=== PATIENT | male | born 1950 | race African-American/Black ===

== ENCOUNTER 2019-04-07 13:36 | Inpatient (IN) | payer MEDICAID ==
[~2019-04-07] VITALS: Ht 172.7 cm; Wt 64.0 kg
[~2019-04-07 13:36] MED LIST: ALBU6.7H11 INH; AMLO10TA80 PO; ASPI-986 PO; CLOP75TA4 PO; GABA-529 PO; HYDR25TA PO; LIP40 PO; P50 PO; TIOT18CA3 IH
[2019-04-07] MEDS ORDERED: METHYLPREDNISOLONE SOD SUCC 125 MG/2 ML VIAL IV STA (14:11)
[2019-04-07] MEDS ORDERED: IPRATROPIUM BROMIDE (0.02%) 0.5MG/2.5ML NEB HHN STA (14:11)
[2019-04-07] MEDS ORDERED: ALBUTEROL (0.083%) 2.5MG/3ML NEB HHN STA (14:11)
[2019-04-07 15:31] LABS: BASOPHILS % 0.6 % (0.0-2.0); EOSINOPHILS % 0.5 % (0.0-5.0); HEMATOCRIT. 38.2 % (42.0-52.0); HEMOGLOBIN. 12.6 g/dL (14.0-18.0); LYMPHOCYTES % 26.2 % (20.0-50.0); MEAN CORPUSCULAR HEMOGLOBIN 29.2 pg (28.0-32.0); MEAN CORPUSCULAR VOLUME 88.7 fL (80.0-94.0); MONOCYTES % 8.8 % (2.0-8.0); NEUTROPHILS % 63.9 % (40.0-76.0); PLATELET 234 x1000/uL (130-400); RED CELL DISTRIBUTION WIDTH 15.6 % (11.6-14.6)
[2019-04-07 15:37] LABS: CHLORIDE 105 mEq/L (98-107)
[2019-04-07 15:41] LABS: D-DIMER 0.24 mg/L FEU (<0.50); INR 1.1; PARTIAL THROMBOPLASTIN TIME 29.9 sec (23.4-31.0); PROTHROMBIN TIME 10.9 sec (9.6-11.0)
[2019-04-07] MEDS ORDERED: MORPHINE SULFATE 4 MG/ML CPJ (NOT FOR IM USE) IV ONE (17:45)
[2019-04-07] MEDS ORDERED: LORAZEPAM 2MG/ML CPJ IV PRN (19:15)
[2019-04-07] MEDS ORDERED: HYDROCODONE/ACETAMINOPHEN 5/325MG TABLET PO PRN (19:15)
[2019-04-07] MEDS ORDERED: MAGNESIUM/ALUMINUM HYDROXIDE/SIMETHICONE 30ML UDC PO PRN (19:15)
[2019-04-07] MEDS ORDERED: ACETAMINOPHEN 325MG TABLET PO PRN (19:15)
[2019-04-07] MEDS ORDERED: CLONIDINE 0.1MG TABLET PO PRN (19:15)
[2019-04-07] MEDS ORDERED: ONDANSETRON HCL 4MG/2ML INJ IV PRN (19:15)
[2019-04-07] MEDS: IPRATROPIUM/ALBUTEROL 0.5-3(2.5)MG/3ML NEB NEB SCH (22:05)
[2019-04-08] MEDS: MORPHINE SULFATE 2 MG/ML CPJ (NOT FOR IM USE) IV PRN ×4 (00:06→16:52)
[2019-04-08 00:09] LABS: CREATINE KINASE 46 IU/L (39-308)
[2019-04-08 00:10] LABS: CREATINE KINASE MB FRACTION < 1.0 ng/mL (0.5-3.6)
[2019-04-08 00:20] VITALS: BP 96/43
[2019-04-08] MEDS: GUAIFENESIN 200MG/10ML SUGAR FREE UDC PO PRN ×3 (02:43→12:03)
[2019-04-08] MEDS ORDERED: ISOS60TA4 MT (03:02)
[2019-04-08] MEDS ORDERED: ASPI-1497 MT (03:06)
[2019-04-08] MEDS ORDERED: OMEP20TA2 MT (03:06)
[2019-04-08] MEDS ORDERED: APIX5TAB MT (03:06)
[2019-04-08] MEDS ORDERED: ATOR-2 MT (03:06)
[2019-04-08] MEDS ORDERED: METO-411 MT (03:09)
[2019-04-08] MEDS ORDERED: ACET-2708 MT (03:09)
[2019-04-08] MEDS ORDERED: HYDR25TA MT (03:09)
[2019-04-08] MEDS ORDERED: LISI-186 PO (03:09)
[2019-04-08] MEDS: IPRATROPIUM/ALBUTEROL 0.5-3(2.5)MG/3ML NEB NEB PRN ×2 (03:11→16:29)
[2019-04-08 04:00] VITALS: BP 100/59
[2019-04-08 07:33] LABS: BASOPHILS % 0.4 % (0.0-2.0); EOSINOPHILS % 0.3 % (0.0-5.0); HEMOGLOBIN. 11.7 g/dL (14.0-18.0); MEAN CORPUSCULAR HEMOGLOBIN 29.6 pg (28.0-32.0); MEAN CORPUSCULAR VOLUME 88.4 fL (80.0-94.0); MEAN PLATELET VOLUME 7.1 fl (7.4-10.4); MONOCYTES % 7.7 % (2.0-8.0); NEUTROPHILS % 77.6 % (40.0-76.0); PLATELET 212 x1000/uL (130-400); RED BLOOD CELL COUNT 3.96 mill/uL (4.7-6.1); RED CELL DISTRIBUTION WIDTH 15.9 % (11.6-14.6)
[2019-04-08 08:00] VITALS: BP 118/77
[2019-04-08 08:16] LABS: CHLORIDE 106 mEq/L (98-107)
[2019-04-08 08:25] LABS: CREATINE KINASE 55 IU/L (39-308); CREATINE KINASE MB FRACTION 1.1 ng/mL (0.5-3.6)
[2019-04-08] MEDS: IPRATROPIUM/ALBUTEROL 0.5-3(2.5)MG/3ML NEB NEB SCH ×3 (08:27→20:36)
[2019-04-08] MEDS: METHYLPREDNISOLONE SOD SUCC 40 MG/ML VIAL IV SCH ×2 (08:49→16:52)
[2019-04-08] MEDS: AMLODIPINE 10MG TABLET PO SCH (08:49)
[2019-04-08] MEDS: ASPIRIN 81MG EC TABLET PO SCH (09:02)
[2019-04-08 12:00] VITALS: BP 123/52
[2019-04-08 16:00] VITALS: BP 116/92
[2019-04-08] MEDS: APIXABAN 5 MG TABLET PO SCH (17:30)
[2019-04-08] MEDS: POTASSIUM CHLORIDE 20MEQ TABLET SR PO SCH (17:30)
[2019-04-08 20:00] VITALS: BP 109/46
[2019-04-09] VITALS: BP 116/56
[2019-04-09] MEDS: METHYLPREDNISOLONE SOD SUCC 40 MG/ML VIAL IV SCH ×3 (00:22→17:23)
[2019-04-09] MEDS: GUAIFENESIN 200MG/10ML SUGAR FREE UDC PO PRN ×2 (01:37→09:51)
[2019-04-09] MEDS: MORPHINE SULFATE 2 MG/ML CPJ (NOT FOR IM USE) IV PRN ×4 (01:38→21:18)
[2019-04-09] MEDS: IPRATROPIUM/ALBUTEROL 0.5-3(2.5)MG/3ML NEB NEB SCH ×4 (01:39→19:51)
[2019-04-09 04:00] VITALS: BP 111/56
[2019-04-09 08:00] VITALS: BP 106/61
[2019-04-09] MEDS: AMLODIPINE 10MG TABLET PO SCH (09:00)
[2019-04-09] MEDS: POTASSIUM CHLORIDE 20MEQ TABLET SR PO SCH (09:46)
[2019-04-09] MEDS: ASPIRIN 81MG EC TABLET PO SCH (09:46)
[2019-04-09] MEDS: APIXABAN 5 MG TABLET PO SCH ×2 (09:46→17:23)
[2019-04-09 12:00] VITALS: BP 118/50
[2019-04-09 16:00] VITALS: BP 106/40
[2019-04-09 20:00] VITALS: BP 121/93
[2019-04-09] MEDS: ATORVASTATIN CALCIUM 40MG TABLET PO SCH (20:16)
[2019-04-09] MEDS: GUAIFENESIN 600MG ER TABLET PO SCH (20:17)
[2019-04-10] VITALS: BP 115/55
[2019-04-10] MEDS: GUAIFENESIN 200MG/10ML SUGAR FREE UDC PO PRN (01:09)
[2019-04-10] MEDS: METHYLPREDNISOLONE SOD SUCC 40 MG/ML VIAL IV SCH ×3 (01:09→18:56)
[2019-04-10] MEDS: IPRATROPIUM/ALBUTEROL 0.5-3(2.5)MG/3ML NEB NEB SCH ×3 (02:16→21:37)
[2019-04-10] MEDS: MORPHINE SULFATE 2 MG/ML CPJ (NOT FOR IM USE) IV PRN ×3 (02:59→16:38)
[2019-04-10 04:00] VITALS: BP 110/44
[2019-04-10 08:00] VITALS: BP 115/45
[2019-04-10] MEDS: AMLODIPINE 10MG TABLET PO SCH (09:00)
[2019-04-10] MEDS: ASPIRIN 81MG EC TABLET PO SCH (09:38)
[2019-04-10] MEDS: POTASSIUM CHLORIDE 20MEQ TABLET SR PO SCH (09:38)
[2019-04-10] MEDS: APIXABAN 5 MG TABLET PO SCH ×2 (09:38→18:55)
[2019-04-10] MEDS: ISOSORBIDE MONONITRATE 60MG TABLET SR 24HR PO SCH (09:38)
[2019-04-10] MEDS: GUAIFENESIN 600MG ER TABLET PO SCH ×2 (09:38→20:56)
[2019-04-10 11:47] LABS: HEMATOCRIT. 34.4 % (42.0-52.0); HEMOGLOBIN. 11.3 g/dL (14.0-18.0); MEAN CORPUSCULAR HEMOGLOBIN 29.2 pg (28.0-32.0); MEAN CORPUSCULAR VOLUME 88.5 fL (80.0-94.0); MEAN PLATELET VOLUME 6.8 fl (7.4-10.4); PLATELET 247 x1000/uL (130-400); RED BLOOD CELL COUNT 3.89 mill/uL (4.7-6.1); RED CELL DISTRIBUTION WIDTH 16.3 % (11.6-14.6)
[2019-04-10 12:00] VITALS: BP 114/52
[2019-04-10 12:05] LABS: CHLORIDE 105 mEq/L (98-107)
[2019-04-10 12:25] LABS: PLATELET ESTIMATE NORMAL
[2019-04-10] MEDS: IPRATROPIUM/ALBUTEROL 0.5-3(2.5)MG/3ML NEB NEB PRN (12:25)
[2019-04-10 16:00] VITALS: BP 125/61
[2019-04-10 20:35] VITALS: BP 127/66
[2019-04-10] MEDS: ATORVASTATIN CALCIUM 40MG TABLET PO SCH (20:56)
[2019-04-10] MEDS: LACTULOSE 20G/30ML UDC PO PRN (20:56)
[2019-04-10] MEDS: BUDESONIDE 0.5MG/2ML NEB HHN SCH (21:41)
[2019-04-11 00:36] VITALS: BP 103/48
[2019-04-11] MEDS: METHYLPREDNISOLONE SOD SUCC 40 MG/ML VIAL IV SCH ×3 (00:49→17:09)
[2019-04-11] MEDS: IPRATROPIUM/ALBUTEROL 0.5-3(2.5)MG/3ML NEB NEB SCH ×5 (02:19→20:11)
[2019-04-11] MEDS: MORPHINE SULFATE 2 MG/ML CPJ (NOT FOR IM USE) IV PRN ×5 (03:15→22:04)
[2019-04-11 04:00] VITALS: BP 117/54
[2019-04-11 08:00] VITALS: BP 130/59
[2019-04-11] MEDS: POTASSIUM CHLORIDE 20MEQ TABLET SR PO SCH (08:45)
[2019-04-11] MEDS: ASPIRIN 81MG EC TABLET PO SCH (08:45)
[2019-04-11] MEDS: ISOSORBIDE MONONITRATE 60MG TABLET SR 24HR PO SCH (08:45)
[2019-04-11] MEDS: AMLODIPINE 10MG TABLET PO SCH (08:46)
[2019-04-11] MEDS: APIXABAN 5 MG TABLET PO SCH ×2 (08:46→17:10)
[2019-04-11] MEDS: GUAIFENESIN 600MG ER TABLET PO SCH (08:46)
[2019-04-11] MEDS: BUDESONIDE 0.5MG/2ML NEB HHN SCH ×3 (10:21→20:11)
[2019-04-11 12:00] VITALS: BP 122/65
[2019-04-11] MEDS: LORATADINE 10MG TABLET PO SCH (12:27)
[2019-04-11] MEDS: LEVOFLOXACIN 500MG PREMIX 100 ML IV SCH (13:31)
[2019-04-11] MEDS ORDERED: ACETYLCYSTEINE 200MG/ML 20% VIAL 4ML INH SCH (14:00)
[2019-04-11] MEDS: ACETYLCYSTEINE 200MG/ML 20% VIAL 4ML INH SCH (14:45)
[2019-04-11 16:00] VITALS: BP 120/63
[2019-04-11] MEDS: LACTULOSE 20G/30ML UDC PO PRN (17:09)
[2019-04-11 20:00] VITALS: BP 130/52
[2019-04-11] MEDS: ATORVASTATIN CALCIUM 40MG TABLET PO SCH (20:19)
[2019-04-11] MEDS: GUAIFENESIN 200MG/10ML SUGAR FREE UDC PO PRN (20:34)
[2019-04-12] VITALS: BP 133/71
[2019-04-12] MEDS: METHYLPREDNISOLONE SOD SUCC 40 MG/ML VIAL IV SCH ×4 (01:18→17:00)
[2019-04-12] MEDS: ACETYLCYSTEINE 200MG/ML 20% VIAL 4ML INH SCH ×3 (02:18→12:12)
[2019-04-12] MEDS: IPRATROPIUM/ALBUTEROL 0.5-3(2.5)MG/3ML NEB NEB SCH ×4 (02:18→20:50)
[2019-04-12] MEDS: MORPHINE SULFATE 2 MG/ML CPJ (NOT FOR IM USE) IV PRN ×4 (03:30→18:15)
[2019-04-12 08:00] VITALS: BP 134/55
[2019-04-12] MEDS: APIXABAN 5 MG TABLET PO SCH ×2 (08:43→18:17)
[2019-04-12] MEDS: AMLODIPINE 10MG TABLET PO SCH (08:43)
[2019-04-12] MEDS: ASPIRIN 81MG EC TABLET PO SCH (08:43)
[2019-04-12] MEDS: LORATADINE 10MG TABLET PO SCH (08:43)
[2019-04-12] MEDS: ISOSORBIDE MONONITRATE 60MG TABLET SR 24HR PO SCH (08:44)
[2019-04-12] MEDS: GUAIFENESIN 200MG/10ML SUGAR FREE UDC PO PRN ×2 (08:44→13:58)
[2019-04-12] MEDS: POTASSIUM CHLORIDE 20MEQ TABLET SR PO SCH (08:44)
[2019-04-12] MEDS: BUDESONIDE 0.5MG/2ML NEB HHN SCH ×2 (08:47→20:50)
[2019-04-12 12:00] VITALS: BP 150/71
[2019-04-12] MEDS: LEVOFLOXACIN 500MG PREMIX 100 ML IV SCH (13:33)
[2019-04-12 13:54] VITALS: BP 131/63
[2019-04-12 16:00] VITALS: BP 104/55
[2019-04-12] MEDS ORDERED: NA PHOS,M-B/NA PHOS,DI-BA ENEMA 118ML PR NR (18:15)
[2019-04-12 20:00] VITALS: BP 133/60
[2019-04-12] MEDS: ATORVASTATIN CALCIUM 40MG TABLET PO SCH (21:23)
[2019-04-13] VITALS (7 sets, daily range): BP systolic 119–146; BP diastolic 56–86
[2019-04-13] MEDS: METHYLPREDNISOLONE SOD SUCC 40 MG/ML VIAL IV SCH ×3 (00:21→17:00)
[2019-04-13] MEDS: IPRATROPIUM/ALBUTEROL 0.5-3(2.5)MG/3ML NEB NEB SCH ×5 (01:12→22:04)
[2019-04-13] MEDS: ACETYLCYSTEINE 200MG/ML 20% VIAL 4ML INH SCH ×3 (01:12→15:12)
[2019-04-13] MEDS ORDERED: MORPHINE SULFATE 2 MG/ML CPJ (NOT FOR IM USE) IV PRN (01:45)
[2019-04-13] MEDS ORDERED: LORAZEPAM 2MG/ML CPJ IV PRN (07:30)
[2019-04-13] MEDS ORDERED: HYDROCODONE/ACETAMINOPHEN 5/325MG TABLET PO PRN (07:30)
[2019-04-13] MEDS: GUAIFENESIN 200MG/10ML SUGAR FREE UDC PO PRN ×2 (07:56→12:02)
[2019-04-13] MEDS: MORPHINE SULFATE 2 MG/ML CPJ (NOT FOR IM USE) IV PRN ×3 (07:56→17:27)
[2019-04-13] MEDS: ASPIRIN 81MG EC TABLET PO SCH (08:00)
[2019-04-13] MEDS: ISOSORBIDE MONONITRATE 60MG TABLET SR 24HR PO SCH (08:00)
[2019-04-13] MEDS: POTASSIUM CHLORIDE 20MEQ TABLET SR PO SCH (08:00)
[2019-04-13] MEDS: LORATADINE 10MG TABLET PO SCH (08:01)
[2019-04-13] MEDS: APIXABAN 5 MG TABLET PO SCH ×2 (08:01→17:27)
[2019-04-13] MEDS: AMLODIPINE 10MG TABLET PO SCH (08:01)
[2019-04-13] MEDS: BUDESONIDE 0.5MG/2ML NEB HHN SCH (08:48)
[2019-04-13] MEDS: LEVOFLOXACIN 500MG PREMIX 100 ML IV SCH (13:03)
[2019-04-13] MEDS ORDERED: NA PHOS,M-B/NA PHOS,DI-BA ENEMA 118ML PR NR (22:15)
[2019-04-13] MEDS: ATORVASTATIN CALCIUM 40MG TABLET PO SCH (22:52)
[2019-04-14] VITALS: BP 128/75
[2019-04-14] MEDS: METHYLPREDNISOLONE SOD SUCC 40 MG/ML VIAL IV SCH ×3 (00:26→16:12)
[2019-04-14] MEDS: IPRATROPIUM/ALBUTEROL 0.5-3(2.5)MG/3ML NEB NEB SCH ×5 (01:45→20:18)
[2019-04-14 04:00] VITALS: BP 162/80
[2019-04-14] MEDS: MORPHINE SULFATE 2 MG/ML CPJ (NOT FOR IM USE) IV PRN ×4 (04:22→20:28)
[2019-04-14 06:13] LABS: HEMATOCRIT 37.6 % (42.0-52.0); HEMOGLOBIN 12.6 g/dL (14.0-18.0); MEAN CORPUSCULAR HEMOGLOBIN 29.3 pg (28.0-32.0); MEAN CORPUSCULAR VOLUME 87.5 fL (80.0-94.0); PLATELET 271 x1000/uL (130-400); RED CELL DISTRIBUTION WIDTH 15.5 % (11.6-14.6)
[2019-04-14 06:38] LABS: CHLORIDE 103 mEq/L (98-107)
[2019-04-14] MEDS: ACETYLCYSTEINE 200MG/ML 20% VIAL 4ML INH SCH ×2 (07:39→14:00)
[2019-04-14 08:00] VITALS: BP 144/75
[2019-04-14] MEDS: AMLODIPINE 10MG TABLET PO SCH (08:19)
[2019-04-14] MEDS: APIXABAN 5 MG TABLET PO SCH ×2 (08:19→16:12)
[2019-04-14] MEDS: POTASSIUM CHLORIDE 20MEQ TABLET SR PO SCH (08:20)
[2019-04-14] MEDS: ISOSORBIDE MONONITRATE 60MG TABLET SR 24HR PO SCH (08:20)
[2019-04-14] MEDS: ASPIRIN 81MG EC TABLET PO SCH (08:20)
[2019-04-14] MEDS: LORATADINE 10MG TABLET PO SCH (08:20)
[2019-04-14] MEDS: LACTULOSE 20G/30ML UDC PO PRN (11:34)
[2019-04-14 12:00] VITALS: BP 123/79
[2019-04-14] MEDS: LEVOFLOXACIN 500MG PREMIX 100 ML IV SCH (12:21)
[2019-04-14] MEDS: IPRATROPIUM/ALBUTEROL 0.5-3(2.5)MG/3ML NEB NEB PRN (14:34)
[2019-04-14 16:00] VITALS: BP 127/71
[2019-04-14 20:00] VITALS: BP 129/75
[2019-04-14] MEDS: ATORVASTATIN CALCIUM 40MG TABLET PO SCH (20:28)
[2019-04-15] VITALS: BP 135/76
[2019-04-15] MEDS: METHYLPREDNISOLONE SOD SUCC 40 MG/ML VIAL IV SCH ×3 (00:06→17:16)
[2019-04-15] MEDS: MORPHINE SULFATE 2 MG/ML CPJ (NOT FOR IM USE) IV PRN ×5 (00:07→20:38)
[2019-04-15] MEDS: ACETYLCYSTEINE 200MG/ML 20% VIAL 4ML INH SCH ×3 (00:17→22:30)
[2019-04-15] MEDS: IPRATROPIUM/ALBUTEROL 0.5-3(2.5)MG/3ML NEB NEB SCH ×4 (00:20→22:31)
[2019-04-15 04:00] VITALS: BP 134/71
[2019-04-15 07:46] VITALS: BP 116/72
[2019-04-15] MEDS: ISOSORBIDE MONONITRATE 60MG TABLET SR 24HR PO SCH (09:48)
[2019-04-15] MEDS: APIXABAN 5 MG TABLET PO SCH ×2 (09:48→17:16)
[2019-04-15] MEDS: LORATADINE 10MG TABLET PO SCH (09:48)
[2019-04-15] MEDS: ASPIRIN 81MG EC TABLET PO SCH (09:48)
[2019-04-15] MEDS: LEVOFLOXACIN 500MG TABLET PO SCH ×2 (10:48→11:38)
[2019-04-15] MEDS: AMLODIPINE 10MG TABLET PO SCH (10:49)
[2019-04-15] MEDS: POTASSIUM CHLORIDE 20MEQ TABLET SR PO SCH (10:49)
[2019-04-15 12:00] VITALS: BP 137/74
[2019-04-15 16:00] VITALS: BP 130/79
[2019-04-15 20:00] VITALS: BP 140/77
[2019-04-15] MEDS ORDERED: ZOLPIDEM TARTRATE 5MG TABLET PO PRN (20:00)
[2019-04-15] MEDS: ATORVASTATIN CALCIUM 40MG TABLET PO SCH (20:08)
[2019-04-16] VITALS: BP 135/69
[2019-04-16] MEDS: METHYLPREDNISOLONE SOD SUCC 40 MG/ML VIAL IV SCH ×3 (00:19→17:21)
[2019-04-16] MEDS: IPRATROPIUM/ALBUTEROL 0.5-3(2.5)MG/3ML NEB NEB SCH ×4 (02:56→21:15)
[2019-04-16 04:00] VITALS: BP 138/75
[2019-04-16 08:00] VITALS: BP 140/77
[2019-04-16] MEDS: ACETYLCYSTEINE 200MG/ML 20% VIAL 4ML INH SCH ×2 (08:25→15:00)
[2019-04-16] MEDS: LORATADINE 10MG TABLET PO SCH (09:44)
[2019-04-16] MEDS: ISOSORBIDE MONONITRATE 60MG TABLET SR 24HR PO SCH (09:44)
[2019-04-16] MEDS: AMLODIPINE 10MG TABLET PO SCH (09:44)
[2019-04-16] MEDS: POTASSIUM CHLORIDE 20MEQ TABLET SR PO SCH (09:44)
[2019-04-16] MEDS: APIXABAN 5 MG TABLET PO SCH ×2 (09:44→17:21)
[2019-04-16] MEDS: ASPIRIN 81MG EC TABLET PO SCH (09:44)
[2019-04-16] MEDS: MORPHINE SULFATE 2 MG/ML CPJ (NOT FOR IM USE) IV PRN ×3 (10:28→20:02)
[2019-04-16] MEDS: LEVOFLOXACIN 500MG TABLET PO SCH (11:00)
[2019-04-16 12:00] VITALS: BP 132/78
[2019-04-16 16:00] VITALS: BP 130/79
[2019-04-16 20:00] VITALS: BP 130/75
[2019-04-16] MEDS: ATORVASTATIN CALCIUM 40MG TABLET PO SCH ×3 (20:03→21:41)
[2019-04-17] MEDS: METHYLPREDNISOLONE SOD SUCC 40 MG/ML VIAL IV SCH ×2 (00:37→09:15)
[2019-04-17] MEDS: MORPHINE SULFATE 2 MG/ML CPJ (NOT FOR IM USE) IV PRN ×2 (00:42→09:14)
[2019-04-17] MEDS: IPRATROPIUM/ALBUTEROL 0.5-3(2.5)MG/3ML NEB NEB SCH ×2 (01:15→09:14)
[2019-04-17 04:00] VITALS: BP 133/72
[2019-04-17 08:00] VITALS: BP 125/68
[2019-04-17] MEDS: POTASSIUM CHLORIDE 20MEQ TABLET SR PO SCH (09:14)
[2019-04-17] MEDS: AMLODIPINE 10MG TABLET PO SCH (09:15)
[2019-04-17] MEDS: LORATADINE 10MG TABLET PO SCH (09:15)
[2019-04-17] MEDS: APIXABAN 5 MG TABLET PO SCH (09:15)
[2019-04-17] MEDS: LEVOFLOXACIN 500MG TABLET PO SCH (09:15)
[2019-04-17] MEDS: ASPIRIN 81MG EC TABLET PO SCH (09:15)
[2019-04-17] MEDS: ISOSORBIDE MONONITRATE 60MG TABLET SR 24HR PO SCH (09:15)
[2019-04-17 10:00] VITALS: BP 108/81
[2019-04-17 12:02] VITALS: BP 108/80
== END 2019-04-17 12:45 | DRG 140 ==
LOC: ER 13:36 → 5WST 16:52 → EDBEDREQ 17:07 → EDBEDREQTM 17:07 → ENRESERV 23:19
PROVIDERS: ADMIT Hospitalist; ATTEND Hospitalist
DX: J44.1 Chronic obstructive pulmonary disease with (acute) exacerbation (principal); I24.9 Acute ischemic heart disease, unspecified; Z99.81 Dependence on supplemental oxygen; E78.5 Hyperlipidemia, unspecified; I10 Essential (primary) hypertension; I25.10 Atherosclerotic heart disease of native coronary artery without angina pectoris; I25.2 Old myocardial infarction; Z85.118 Personal history of other malignant neoplasm of bronchus and lung; Z95.5 Presence of coronary angioplasty implant and graft; Z79.899 Other long term (current) drug therapy; Z79.82 Long term (current) use of aspirin; Z88.8 Allergy status to other drugs, medicaments and biological substances
CPT/HCPCS: 36415; 71045; 80048; 80053; 82550; 82553; 82962; 83735; 83880; 84484; 85025; 85027; 85379; 93005; 93306; 93970; 94640; 96374; 97162; 99285; C1893; J1956; J2060; J2270; J2920; J7608; J7611; J7620; J7626

== ENCOUNTER 2019-04-17 20:07 | Emergency (ER) | payer MEDICAID ==
[~2019-04-17] VITALS: Ht 175.3 cm; Wt 68.0 kg
[~2019-04-17 20:07] MED LIST changes: +ACET-2708 MT; +APIX5TAB MT; +ASPI-1497 MT; -ASPI-986 PO; +ATOR-2 MT; -CLOP75TA4 PO; -GABA-529 PO; +HYDR25TA MT; -HYDR25TA PO; +ISOS60TA4 MT; -LIP40 PO; +LISI-186 PO; +METO-411 MT; +OMEP20TA2 MT; -TIOT18CA3 IH
[2019-04-17] MEDS ORDERED: ALBUTEROL (0.083%) 2.5MG/3ML NEB HHN STA (20:58)
[2019-04-17] MEDS ORDERED: MORPHINE SULFATE 4 MG/ML CPJ (NOT FOR IM USE) IV STA (20:58)
[2019-04-17] MEDS ORDERED: ONDANSETRON HCL 4MG/2ML INJ IV STA (20:58)
[2019-04-17] MEDS ORDERED: IPRATROPIUM BROMIDE (0.02%) 0.5MG/2.5ML NEB HHN STA (20:58)
[2019-04-17] MEDS ORDERED: METHYLPREDNISOLONE SOD SUCC 125 MG/2 ML VIAL IV STA (20:58)
[2019-04-17] MEDS ORDERED: NITROGLYCERIN 0.4MG TABLET SL SL PRN (21:00)
[2019-04-17 21:22] LABS: CHLORIDE 106 mEq/L (98-107)
[2019-04-17 21:32] LABS: HEMATOCRIT. 39.6 % (42.0-52.0); HEMOGLOBIN. 13.2 g/dL (14.0-18.0); MEAN CORPUSCULAR HEMOGLOBIN 28.9 pg (28.0-32.0); MEAN CORPUSCULAR VOLUME 86.6 fL (80.0-94.0); MEAN PLATELET VOLUME 6.8 fl (7.4-10.4); PLATELET 346 x1000/uL (130-400); RED BLOOD CELL COUNT 4.57 mill/uL (4.7-6.1); RED CELL DISTRIBUTION WIDTH 16.1 % (11.6-14.6)
[2019-04-17 21:46] LABS: PLATELET ESTIMATE NORMAL
[2019-04-17] MEDS ORDERED: OSELTAMIVIR 75MG CAPSULE PO ONE (22:00)
[2019-04-17] MEDS ORDERED: PIPERACILLIN/TAZ 3.375G PREMIX 50 ML IV ONE (22:00)
[2019-04-17] MEDS ORDERED: SODIUM CHLORIDE 0.9% 1000ML BAG (SEPSIS BOLUS) IV ONE (22:00)
[2019-04-17] MEDS ORDERED: VANCOMYCIN 1 G PREMIX 200 ML IV ONE (22:00)
[2019-04-18] MEDS ORDERED: IPRATROPIUM/ALBUTEROL 0.5-3(2.5)MG/3ML NEB NEB SCH (02:00)
[2019-04-18] MEDS ORDERED: LORAZEPAM 2MG/ML CPJ IV PRN (02:00)
[2019-04-18] MEDS ORDERED: ACETAMINOPHEN 325MG TABLET PO PRN (02:00)
[2019-04-18] MEDS ORDERED: GUAIFENESIN 200MG/10ML SUGAR FREE UDC PO PRN (02:00)
[2019-04-18] MEDS ORDERED: HYDROCODONE/ACETAMINOPHEN 5/325MG TABLET PO PRN (02:00)
[2019-04-18] MEDS ORDERED: IPRATROPIUM/ALBUTEROL 0.5-3(2.5)MG/3ML NEB NEB PRN (02:00)
[2019-04-18] MEDS ORDERED: ONDANSETRON HCL 4MG/2ML INJ IV PRN (02:00)
[2019-04-18] MEDS ORDERED: DOCUSATE SODIUM 100MG CAPSULE PO PRN (02:00)
[2019-04-18] MEDS ORDERED: CLONIDINE 0.1MG TABLET PO PRN (02:00)
[2019-04-18] MEDS ORDERED: MAGNESIUM/ALUMINUM HYDROXIDE/SIMETHICONE 30ML UDC PO PRN (02:00)
[2019-04-18] MEDS: MORPHINE SULFATE 2 MG/ML CPJ (NOT FOR IM USE) IV PRN ×2 (02:15→07:20)
[2019-04-18 02:21] LABS: CLARITY URINE CLEAR (CLEAR); COLOR URINE YELLOW (YELLOW); KETONES URINE NEGATIVE (NEGATIVE); LEUKOCYTE ESTERASE URINE NEGATIVE (NEGATIVE); NITRITE URINE NEGATIVE (NEGATIVE); OCCULT BLOOD URINE NEGATIVE (NEGATIVE); PH URINE 5.5 (4.5-8.0); PROTEIN URINE NEGATIVE (NEGATIVE); SPECIFIC GRAVITY URINE 1.028 (1.005-1.030); UROBILINOGEN URINE 0.2 E.U./dL (0.2-1.0)
[2019-04-18 02:58] LABS: CHLORIDE 106 mEq/L (98-107)
[2019-04-18] MEDS ORDERED: ASPIRIN 81MG EC TABLET PO SCH (09:00)
[2019-04-18] MEDS ORDERED: LISINOPRIL 10MG TABLET PO SCH (09:00)
[2019-04-18] MEDS ORDERED: AMLODIPINE 10MG TABLET PO SCH (09:00)
[2019-04-18 09:37] VITALS: BP 128/77
== END 2019-04-18 09:51 | disposition home or self-care (01) ==
LOC: ER 20:07 → EDBEDREQTM 23:48 → EDBEDREQ 23:48 → CANRESERV 04-18 08:04 → ENRESERV 04-18 08:04 → CANBEDREQ 04-18 09:42 → ER 04-18 09:51
DX: J44.1 Chronic obstructive pulmonary disease with (acute) exacerbation (principal); J18.9 Pneumonia, unspecified organism; I11.9 Hypertensive heart disease without heart failure; I25.10 Atherosclerotic heart disease of native coronary artery without angina pectoris; E78.00 Pure hypercholesterolemia, unspecified; I48.91 Unspecified atrial fibrillation; I69.351 Hemiplegia and hemiparesis following cerebral infarction affecting right dominant side; Z85.118 Personal history of other malignant neoplasm of bronchus and lung; Z90.2 Acquired absence of lung [part of]; Z98.61 Coronary angioplasty status; Z88.8 Allergy status to other drugs, medicaments and biological substances; Z79.01 Long term (current) use of anticoagulants
CPT/HCPCS: 36415; 71045; 80048; 80053; 81003; 83605; 83880; 84484; 85025; 87040; 87086; 87804; 93005; 94640; 96365; 96367; 96375; 96376; 99284; J2270; J2405; J2543; J2930; J3370; J7030; J7611; Z7610